=== PATIENT | female | born 1970 | race African-American/Black ===

== ENCOUNTER 2016-04-17 20:34 | Emergency (ER) | payer OTHER, MEDICAID ==
[~2016-04-17] VITALS: Ht 175.3 cm; Wt 89.0 kg
[~2016-04-17 20:34] MED LIST: IBUP600T26 PO
[2016-04-17 20:35] VITALS: BP 183/91; PULSE 80; RESP 18; TEMP 97.9; O2SAT 100
[2016-04-17] MEDS ORDERED: SODIUM CHLOR 0.9% 1000 ML INJ 1,000 ML IV ONE (22:22)
[2016-04-17] MEDS ORDERED: ONDANSETRON HCL 4 MG/2 ML VIAL IVP ONE (22:30)
--- NOTE | 2016-04-17 22:52 | RADRPT ---
EXAM DATE/TIME: 04/17/2016 22:31 [facility] COMPARISON: No previous studies available for comparison. INDICATIONS : Dizziness. RADIATION DOSE: 56.35 CTDIvol (mGy) MEDICAL HISTORY : None SURGICAL HISTORY : Cholecystectomy. Tubal ligation. ENCOUNTER: Initial ACUITY: 1 day PAIN SCALE: 0/10 LOCATION: cranial TECHNIQUE: Multiple contiguous axial images were obtained of the head. Using automated exposure control and adj ustment of the mA and/or kV according to patient size, radiation dose was kept as low as reasonably a chievable to obtain optimal diagnostic quality images. FINDINGS: CEREBRUM: The ventricles are normal for age. No evidence of midline shift, mass lesion, hemorrhage or acute in farction. No extra-axial fluid collections are seen. POSTERIOR FOSSA: The cerebellum and brainstem are intact. The 4th ventricle is midline. The cerebellopontine angle i s unremarkable. EXTRACRANIAL: The visualized portion of the orbits is intact. SKULL: The calvaria is intact. No evidence of skull fracture. CONCLUSION: Negative noncontrast head CT. Alexander Terry MD on April 17, 2016 at 22:50 Board Certified Radiologist. This report was verified electronically.
--- NOTE | 2016-04-17 22:52 | RADRPT ---
EXAM DATE/TIME: 04/17/2016 22:48 [facility] COMPARISON: No previous studies available for comparison. INDICATIONS : Cough, shortness of breath, and chest pain. MEDICAL HISTORY : None. SURGICAL HISTORY : None. ENCOUNTER: Initial ACUITY: 1 day PAIN SCORE: 4/10 LOCATION: chest FINDINGS: A single view of the chest demonstrates the lungs to be symmetrically aerated without evidence of mas s, infiltrate or effusion. The cardiomediastinal contours are unremarkable. Osseous structures are intact. CONCLUSION: No evidence of acute cardiopulmonary disease. Alexander Terry MD on April 17, 2016 at 22:51 Board Certified Radiologist. This report was verified electronically.
[2016-04-17] MEDS: SODIUM CHLORIDE 0.9% FLUSH 5 ML FLUSH IVF PRN (23:07)
[2016-04-17 23:09] LABS: BASOPHIL # 0.1 TH/MM3 (0-0.2); BASOPHIL % 1.1 % (0.0-2.0); EOSINOPHIL # 0.1 TH/MM3 (0-0.4); EOSINOPHIL % 1.2 % (0.0-4.0); HEMATOCRIT 31.9 % (35.0-46.0); HEMO FLAGS DIFF FINAL; LYMPH % 37.3 % (9.0-44.0); LYMPHOCYTE # 4.1 TH/MM3 (1.0-4.8); MEAN CELL VOLUME 81.3 FL (80.0-100.0); MEAN CORPUSCULAR HGB CONC 31.9 % (32.0-36.0); MONO % 5.8 % (0.0-8.0); NEUT % 54.6 % (16.0-70.0); PLATELET COUNT 458 TH/MM3 (150-450); RED BLOOD COUNT 3.92 MIL/MM3 (4.00-5.30); RED CELL DISTRIBUTION WIDTH 15.8 % (11.6-17.2); WHITE BLOOD COUNT 11.1 TH/MM3 (4.0-11.0)
[2016-04-17 23:19] LABS: APTT (PATIENT) 26.2 SEC (24.3-30.1); PROTHROMBIN TIME - PATIENT 11.3 SEC (9.8-11.6)
[2016-04-17 23:37] LABS: ALT (GPT) 16 U/L (10-53); ANION GAP 7 MEQ/L (5-15); AST (GOT) 6 U/L (15-37); BLOOD UREA NITROGEN 9 MG/DL (7-18); CHLORIDE 107 MEQ/L (98-107); GLOMERULAR FILTRATION RATE 92 ML/MIN (>89); MAGNESIUM 1.7 MG/DL (1.5-2.5); POTASSIUM 3.3 MEQ/L (3.5-5.1); SODIUM (NA) 140 MEQ/L (136-145)
[2016-04-17 23:40] LABS: ALKALINE PHOSPHATASE 59 U/L (45-117); TOTAL BILIRUBIN ADULT 0.4 MG/DL (0.2-1.0)
[2016-04-17 23:42] LABS: CREATINE KINASE 77 U/L (26-192)
[2016-04-18] VITALS: BP 177/84; PULSE 84; RESP 18; O2SAT 100
[2016-04-18] MEDS ORDERED: SODIUM CHLOR 0.9% 1000 ML INJ 1,000 ML IV ONE (01:00)
[2016-04-18] MEDS: SODIUM CHLORIDE 0.9% FLUSH 5 ML FLUSH IVF PRN (01:24)
[2016-04-18 02:50] VITALS: RESP 18; O2SAT 100
[2016-04-18 02:55] VITALS: BP_SYST 166; BP_SYST 172; BP_SYST 178; BP_DIAS 79; BP_DIAS 84; BP_DIAS 88; RESP 18
[2016-04-18 03:23] LABS: BLOOD, URINE MOD (NEG); COMMENT (UR) CULT NOT INDICATED; CULTURE IF INDICATED CULT NOT INDICATED; GLUCOSE,URINE NEG (NEG); KETONE, URINE NEG (NEG); MUCUS URINE FEW /lpf (OCC); NITRITE,URINE NEG (NEG); PH, URINE 5.5 (5.0-8.5); SQUAMOUS EPITHELIAL CELL URINE 1 /hpf (0-5); URINE COLOR YELLOW (YELLW/STRAW)
--- NOTE | 2016-04-18 03:38 | PD ---
HPI Chief Complaint: Syncope/Near-Syncope Time Seen by Provider: 22:22 Travel History International Travel<30 days: No Contact w/Intl Traveler<30days: No Traveled to known affect area: No History of Present Illness HPI 45 year-old female presents to the emergency department by private transportation for complaint of feeling shaky and near syncopal. Patient states that she felt well all day awakened on Wednesday seeming to fill while in around 7 AM while taking a shower started a week and felt as if her legs were and give way on her. Patient did not faint did not hit her head did not have loss of consciousness. Patient denies any chest pain shortness of breath palpitations. Patient denies any unilateral upper extremity or lower extremity focal numbness tingling or weakness. No visual disturbance no loss of vision no double vision no light sensitivity. No headache. No difficulty with speech no confusion. No abdominal pain. Patient states she called EMS and was evaluated. Patient continued to feel poorly so today's 5 decided to come to the emergency room for evaluation. Patient states standing upright and attempting to ambulate worsen symptoms resting provides no relief. Patient denies previous history of similar symptoms. Patient denies personal history of CAD arrhythmia hypertension dyslipidemia diabetes clotting disorder or family history of the above. Patient also denies any recent long distance travel protracted bedrest her surgical procedure. No lower extremity pain or swelling. [facility] Past Medical History Narrative Medical Denies past medical history; cholecystectomy; occasional alcohol use; nursing notes reviewed Medical History: Denies Significant Hx ?: Not LMP: CURRENT Tubal Ligation: Yes Past Surgical History Cholecystectomy: Yes (2006) Social History Alcohol Use: Yes ([facility]) Tobacco Use: No Substance Use: No Allergies-Medications (Allergen,Severity, Reaction): Coded Allergies: No Known Allergies (Unverified , 04/17/16) Reported Meds & Prescriptions Reported Meds & Active Scripts Active Zofran Odt (Ondansetron Odt) 4 Mg Tab 4 Mg SL Q6HR PRN Meclizine (Meclizine HCl) 25 Mg Tab 25 Mg PO Q6HR PRN Review of Systems Except as stated in HPI: all other systems reviewed are Neg General / Constitutional: No: Fever, Chills Eyes: No: Diploplia, Blurred Vision, Photophobia HENT: Positive: Vertigo, Lightheadedness, No: Headaches, Congestion, Neck Stiffness Cardiovascular: No: Chest Pain or Discomfort, Palpitations, Diaphoresis, Syncope Respiratory: No: Cough, Shortness of Breath Gastrointestinal: Positive: Nausea, No: Vomiting, Diarrhea, Abdominal Pain Genitourinary: No: Urgency, Frequency, Dysuria Musculoskeletal: No: Myalgias, Arthralgias Skin: No Rash Neurologic: Positive: Weakness, Dizziness, No: Syncope, Focal Abnormalities, Coordination Problem, Headache, Change in Mentation, Slurred Speech, Paresthesia , Incontinence, Sensory Disturbance Psychiatric: Positive: Anxiety Endocrine: No: Heat Intolerance, Cold Intolerance Hematologic/Lymphatic: No: Easy Bruising Physical Exam Narrative GENERAL: Well-developed well-nourished female in no acute distress no respiratory distress SKIN: Warm and dry. HEAD: Atraumatic. Normocephalic. EYES: Pupils equal and round. No scleral icterus. No injection or drainage. ENT: No nasal bleeding or discharge. Mucous membranes pink and moist. NECK: Trachea midline. No JVD. CARDIOVASCULAR: Regular rate and rhythm. RESPIRATORY: No accessory muscle use. Clear to auscultation. Breath sounds equal bilaterally. GASTROINTESTINAL: Abdomen soft, non-tender, nondistended. Hepatic and splenic margins not palpable. MUSCULOSKELETAL: Extremities without clubbing, cyanosis, or edema. No obvious deformities. NEUROLOGICAL: Awake and alert. No obvious cranial nerve deficits. Motor grossly within normal limits. Five out of 5 muscle strength in the arms and legs. No limb ataxia. No pronator drift. DTRs 2+ and symmetric. Sensory exam intact. Normal speech. PSYCHIATRIC: Appropriate mood and affect; insight and judgment normal. Data Data Last Documented VS Vital Signs Date Time Temp Pulse Resp B/P Pulse Ox O2 Delivery O2 Flow Rate FiO2 04/18/16 02:55 77 18 178/88 82 18 172/84 89 18 166/79 04/18/16 02:50 100 Room Air 04/17/16 20:35 97.9 Orders Electrocardiogram (04/17/16 20:49) Bedside Glucose KRISTA.AC&HS (04/17/16 20:49) Ed Urine Pregnancytest Poc (04/17/16 22:22) Complete Blood Count With Diff (04/17/16 22:22) Comprehensive Metabolic Panel (04/17/16 22:22) Magnesium (Mg) (04/17/16 22:22) Ckmb (Isoenzyme) Profile (04/17/16 22:22) Troponin I (04/17/16 22:22) Act Partial Throm Time (Ptt) (04/17/16 22:22) Prothrombin Time / Inr (Pt) (04/17/16 22:22) Urinalysis - C+S If Indicated (04/17/16 22:22) Chest, Single Ap (04/17/16 22:22) Ct Brain W/O Iv Contrast(Rout) (04/17/16 22:22) Ecg Monitoring (04/17/16 22:22) Iv Access Insert/Monitor (04/17/16 22:22) Oximetry (04/17/16 22:22) Ondansetron Inj (Zofran Inj) (04/17/16 22:30) Sodium Chloride 0.9% Flush (Ns Flush) (04/17/16 22:30) Sodium Chlor 0.9% 1000 Ml Inj (Ns 1000 M (04/17/16 22:22) Orthostatic Vital Signs (04/17/16 22:22) Sodium Chlor 0.9% 1000 Ml Inj (Ns 1000 M (04/18/16 01:00) Aspirin Chew (Aspirin Chew) (04/18/16 03:45) Clonidine (Catapres) (04/18/16 03:45) Potassium Chloride (Kcl) (04/18/16 03:45) Meclizine (Antivert) (04/18/16 04:30) Labs Laboratory Tests Test 04/17/16 04/18/16 22:45 02:15 White Blood Count 11.1 TH/MM3 Red Blood Count 3.92 MIL/MM3 Hemoglobin 10.2 GM/DL Hematocrit 31.9 % Mean Corpuscular Volume 81.3 FL Mean Corpuscular Hemoglobin 26.0 PG Mean Corpuscular Hemoglobin 31.9 % Concent Red Cell Distribution Width 15.8 % Platelet Count 458 TH/MM3 Mean Platelet Volume 7.7 FL Neutrophils (%) (Auto) 54.6 % Lymphocytes (%) (Auto) 37.3 % Monocytes (%) (Auto) 5.8 % Eosinophils (%) (Auto) 1.2 % Basophils (%) (Auto) 1.1 % Neutrophils # (Auto) 6.0 TH/MM3 Lymphocytes # (Auto) 4.1 TH/MM3 Monocytes # (Auto) 0.6 TH/MM3 Eosinophils # (Auto) 0.1 TH/MM3 Basophils # (Auto) 0.1 TH/MM3 CBC Comment DIFF FINAL Differential Comment Prothrombin Time 11.3 SEC Prothromb Time International 1.0 RATIO Ratio Activated Partial 26.2 SEC Thromboplast Time Sodium Level 140 MEQ/L Potassium Level 3.3 MEQ/L Chloride Level 107 MEQ/L Carbon Dioxide Level 26.0 MEQ/L Anion Gap 7 MEQ/L Blood Urea Nitrogen 9 MG/DL Creatinine 0.81 MG/DL Estimat Glomerular Filtration 92 ML/MIN Rate Random Glucose 93 MG/DL Calcium Level 8.3 MG/DL Magnesium Level 1.7 MG/DL Total Bilirubin 0.4 MG/DL Aspartate Amino Transf 6 U/L (AST/SGOT) Alanine Aminotransferase 16 U/L (ALT/SGPT) Alkaline Phosphatase 59 U/L Total Creatine Kinase 77 U/L Troponin I LESS THAN 0.02 NG/ML Total Protein 7.2 GM/DL Albumin 3.2 GM/DL Urine Color YELLOW Urine Turbidity CLEAR Urine pH 5.5 Urine Specific [place] 1.014 Urine Protein TRACE mg/dL Urine Glucose (UA) NEG mg/dL Urine Ketones NEG mg/dL Urine Occult Blood MOD Urine Nitrite NEG Urine Bilirubin NEG Urine Urobilinogen LESS THAN 2.0 MG/DL Urine Leukocyte Esterase NEG Urine RBC /hpf Urine WBC 3 /hpf Urine Squamous Epithelial 1 /hpf Cells Urine Mucus FEW /lpf Microscopic Urinalysis Comment CULT NOT INDICATED MDM Medical Decision Making Medical Screen Exam Complete: Yes Emergency Medical Condition: Yes Medical Record Reviewed: Yes Interpretation(s) EKG: Normal sinus rhythm rate [address] elevation or injury pattern change noted Last Impressions Head CT 04/17/162221 Signed Impressions: Service Date/Time: Sunday, April 17, 2016 22:31 - CONCLUSION: Negative noncontrast head CT. Alexander Terry MD Chest X-Ray 04/17/162221 Signed Impressions: Service Date/Time: Sunday, April 17, 2016 22:48 - CONCLUSION: No evidence of acute cardiopulmonary disease. Alexander Terry MD CBC & BMP Diagram 04/17/16 22:45 Vital Signs Date Time Temp Pulse Resp B/P Pulse Ox O2 Delivery O2 Flow Rate FiO2 04/18/16 02:55 77 18 178/88 82 18 172/84 89 18 166/79 04/18/16 02:50 18 100 Room Air 04/18/16 00:00 84 18 177/84 100 04/17/16 20:35 97.9 80 18 183/91 100 Differential Diagnosis Vertigo, labyrinthitis, viral syndrome, dehydration, TIA, uncontrolled hypertension, hypotension, UTI, sepsis, PE, ACS Narrative Course Patient placed on clinical research monitor IV access obtained specimens collected and sent for resulting EKG performed without acute ST elevation or injury pattern change noted Patient waiting on lab results resting quietly No nausea or vomiting and tolerating IV fluid bolus while requesting additional IV fluid bolus Repeat vital signs within normal range taking oral hydration well feels clinically improved Stable for outpatient management and follow-up with primary care provider Diagnosis Primary Impression: Dizziness and giddiness Referrals: Primary Care Physician 2 days Patient Instructions: General Instructions Departure Forms: Tests/Procedures, Work Release Special Instructions: no work x 2 days Additional Instructions: Increase fluid hydration Take medications as prescribed Follow-up with your primary care provider Return to the emergency department for any concerns or change in condition No work for 2 days; no driving for 2 days Med/Other Pt SpecificInfo: Prescription(s) given Scripts Ondansetron Odt (Zofran Odt)4 Mg Tab4 Mg SL Q6HR PRN (Nausea/Vomiting) #10 TAB Ref 0 Prov:Maira Foy MD 04/18/16 Meclizine 25 Mg Tab25 Mg PO Q6HR PRN (DIZZINESS) #12 TAB Ref 0 Prov:Maira Foy MD 04/18/16 Disposition: 01 DISCHARGE HOME Condition: Stable Maira Foy MD Apr 18, 2016 03:38
[2016-04-18] MEDS ORDERED: ASPIRIN 81 MG CHEW TAB CHEW ONE (03:45)
[2016-04-18] MEDS ORDERED: POTASSIUM CHLORIDE 20 MEQ CONTROLLED RELEASE TAB PO ONE (03:45)
[2016-04-18] MEDS ORDERED: cloNIDine HCL 0.1 MG TAB PO ONE (03:45)
[2016-04-18] MEDS ORDERED: MECL-62 PO (04:26)
[2016-04-18] MEDS ORDERED: ZOFR4TAB3 SL (04:26)
[2016-04-18] MEDS ORDERED: MECLIZINE HCL 25 MG TAB PO ONE (04:30)
--- NOTE | 2016-04-18 07:36 | EKG ---
Date Performed: 04/17/2016 Time Performed: 20:57:43 PTAGE: 45 years EKG: Sinus rhythm NORMAL ECG NO PREVIOUS TRACING DOCTOR: Rehan Mcdonough Interpretating Date/Time 04/18/2016 07:35:43
== END 2016-04-18 05:47 | disposition home or self-care (01) ==
LOC: NEPC 20:34
DX: R42 Dizziness and giddiness (principal); R55 Syncope and collapse
CPT/HCPCS: 70450; 71010; 80053; 81001; 82550; 83735; 84484; 84703; 85025; 85610; 85730; 93005; 96361; 96374; 99284; J2405; J7030

== ENCOUNTER 2016-05-17 02:42 | Emergency (ER) | payer MEDICAID, MEDICARE, OTHER ==
[~2016-05-17] VITALS: Ht 175.3 cm; Wt 88.0 kg
[~2016-05-17 02:42] MED LIST changes: -IBUP600T26 PO; +MECL-62 PO; +ZOFR4TAB3 SL
[2016-05-17 03:16] VITALS: BP 134/89; PULSE 89; RESP 14; TEMP 98.6; O2SAT 98
[2016-05-17] MEDS ORDERED: KETOROLAC TROMETHAMINE 60 MG/2 ML (IM) VIAL IM ONE (03:45)
[2016-05-17] MEDS ORDERED: ORPHENADRINE INJ 60 MG/2 ML AMP IM ONE (03:45)
--- NOTE | 2016-05-17 03:46 | PD ---
HPI Chief Complaint: Pain: Acute or Chronic Time Seen by Provider: 03:43 Travel History International Travel<30 days: No Contact w/Intl Traveler<30days: No Traveled to known affect area: No History of Present Illness HPI Patient comes in for evaluation of upper thoracic back pain ongoing for over 2 days. Patient states pain has been constant. Patient states she took a Percocet that her friend gave her seemed to help ease the pain some. Patient denies any trauma, IV drug use, fevers, numbness or tingling anywhere, or loss change in bowel or bladder. Denies any chest pain or shortness of breath with this. Pain is worse with palpation, certain movement, and deep inspiration. Patient describes pain as shooting like pain without radiation. Patient states she been taking what she believes be a muscle relaxer which she identifies as tramadol 30 mg that just makes her sleepy last dose approximately 8 hours ago. PFSH Past Medical History Musculoskeletal: Yes (low back pain) Tubal Ligation: Yes Past Surgical History Cholecystectomy: Yes (2005) Social History Alcohol Use: Yes ([facility]) Tobacco Use: No Substance Use: No Allergies-Medications (Allergen,Severity, Reaction): Coded Allergies: No Known Allergies (Unverified , 05/17/16) Reported Meds & Prescriptions Reported Meds & Active Scripts Active Diclofenac Sodium DR (Diclofenac Sodium) 75 Mg Tabdr 75 Mg PO Q12HR PRN Robaxin (Methocarbamol) 500 Mg Tab 500 Mg PO Q8HR PRN Zofran Odt (Ondansetron Odt) 4 Mg Tab 4 Mg SL Q6HR PRN Meclizine (Meclizine HCl) 25 Mg Tab 25 Mg PO Q6HR PRN Review of Systems Except as stated in HPI: all other systems reviewed are Neg Physical Exam Narrative GENERAL: Well-developed, well nourished, in no acute distress, and non-ill appearing. SKIN: Warm and dry. HEAD: Atraumatic. Normocephalic. EYES: Pupils equal and round. EOMI. No scleral icterus. No injection or drainage. ENT: No nasal bleeding or discharge. Mucous membranes pink and moist. NECK: Trachea midline. Supple. No nuclear rigidity. CARDIOVASCULAR: Regular rate and rhythm. No murmur appreciated. Radial pulses 2+, intact, and equal bilaterally. Capillary refill less than 2 seconds. RESPIRATORY: No accessory muscle use. No respiratory distress. Clear to auscultation. Breath sounds equal bilaterally. MUSCULOSKELETAL: No obvious deformities. No clubbing. No cyanosis. No edema. Full range of motion. No tenderness crepitus or midline thoracic spine. Patient reports tenderness to the left thoracic over the scapula. Shoulder:FROM equal BL with passive flexion, extension, Abduction, Adduction, internal/ external rotation, and pronation/supination. Sensation equal BL deltoid muscles. Pulses equal BL distal to injury. Capillary refill less than 2 seconds distal to injury and equal BL. FROM distal to injury and equal BL. Strength distal to injury equal BL. NV intact distal to injury equal BL. Flexion and extension of thumb equal BL. Equal strength and movement with abduction/adductions of BL fingers. [employer] In[employer] strength equal BL. NEUROLOGICAL: Awake and alert. No obvious cranial nerve deficits. Motor grossly within normal limits. Normal speech. PSYCHIATRIC: Appropriate mood and affect; insight and judgment normal. Data Data Last Documented VS Vital Signs Date Time Temp Pulse Resp B/P Pulse Ox O2 Delivery O2 Flow Rate FiO2 05/17/16 03:16 98.6 89 14 134/89 98 Orders Ketorolac Inj (Toradol Inj) (05/17/16 03:45) Orphenadrine Inj (Norflex Inj) (05/17/16 03:45) Oxycodone-Acetamin 5-325 Mg (Percocet (05/17/16 04:45) MDM Medical Decision Making Medical Screen Exam Complete: Yes Emergency Medical Condition: Yes Differential Diagnosis Fracture, strain, contusion, spasm, other Narrative Course The patient presented complaining of back pain. There was no history of recent fall or trauma. There was no evidence to support genitourinary etiology. There is also no evidence to suggest vascular pathology such as AAA dissection. No fevers or other evidence to suspect infectious processes, abscess, osteomyelitis etc. The patients neurological exam is normal with normal motor and sensory. There is no saddle paresthesias reported and no bowel or bladder incontinence or retention. There was also no clinical evidence by history, exam or risk factors to suggest atypical presentation of cardiac disease such as ACS , AMI or atypical angina. I suspect the pain is mechanical in nature. Clinical suspicion, plan of care and management was discussed with the patient. The patient was instructed to follow up with their health care provider. The patient was also instructed to return if the pain worsened, changed, or developed weakness or bowel or bladder trouble. The patient agreed with plan. Patient in no obvious distress upon re-evaluation. Patient was able to contact someone at her house and found that the muscle relaxer she is prescribed Zanaflex 4 mg. Patient was asked if they wanted to speak to my attending, which the patient did not wish to do at this time. Any questions/concerns in reference to patient diagnosis/condition discussed and clarified prior to patient's discharge. Reinforced sheer importance of close follow up with patient 's primary physician or primary care clinic. Instructed patient to return to ED immediately, if symptoms return/worsen. Pt showed understanding of above instructions. Further instructions and recommendations were detailed in discharge paperwork. Pt ambulated without difficulty out of ED at discharge. Diagnosis Primary Impression: Back pain Qualified Code: M54.6 - Left-sided thoracic back pain, unspecified chronicity Patient Instructions: General Instructions, Muscle Spasm (ED), Thoracic Back Strain (ED) Additional Instructions: Follow-up with your primary care physician in 2-3 days for reevaluation. Take all medication as prescribed. Stop taking the muscle relaxant you have at home and take the medication prescribed today instead. Return to the emergency department if symptoms get worse. Med/Other Pt SpecificInfo: Prescription(s) given Scripts Diclofenac Sodium DR 75 Mg Tabdr75 Mg PO Q12HR PRN (PAIN SCALE 1 TO 10) #14 TAB Ref 0 Prov:Aleks Sutherland MD 05/17/16 Methocarbamol (Robaxin)500 Mg Ifx150 Mg PO Q8HR PRN (MUSCLE PAIN) #15 TAB Ref 0 Prov:Aleks Sutherland MD 05/17/16 Disposition: 01 DISCHARGE HOME Condition: Stable Gume Almeida May 17, 2016 03:46
[2016-05-17] MEDS ORDERED: DICL75TA PO (04:38)
[2016-05-17] MEDS ORDERED: ROBA500T PO (04:38)
[2016-05-17] MEDS ORDERED: oxyCODONE/ACETAMINOPHEN 5 MG/325 MG TAB PO ONE (04:45)
== END 2016-05-17 04:52 | disposition home or self-care (01) ==
LOC: NEPB 02:42
DX: M54.6 Pain in thoracic spine (principal); Z87.39 Personal history of other diseases of the musculoskeletal system and connective tissue
CPT/HCPCS: 96372; 99283; J1885; J2360

== ENCOUNTER 2017-06-28 08:08 | Emergency (ER) | payer OTHER ==
[~2017-06-28] VITALS: Ht 175.3 cm; Wt 75.0 kg
[~2017-06-28 08:08] MED LIST changes: +DICL75TA PO; +ROBA500T PO
[2017-06-28 08:17] VITALS: BP 117/91; PULSE 70; RESP 16; TEMP 98.4; O2SAT 100
--- NOTE | 2017-06-28 08:37 | PD ---
HPI Chief Complaint: Injury Time Seen by Provider: 08:27 Travel History International Travel<30 days: No Contact w/Intl Traveler<30days: No Traveled to known affect area: No History of Present Illness HPI 46-year-old female presents to emergency department with complaint of left ankle and foot pain and right knee pain after slipping on a wet surface yesterday and falling. She says she did not fall completely down. She caught herself by falling to her right knee. Denies hitting her head or loss of consciousness. Denies chest pain, shortness of breath, abdominal pain, vomiting , syncope. Denies paresthesias, loss of sensation to the affected extremities. Has been ambulatory in the affected extremities. Rates pain 8/10. Worse with movement ambulation. Has tried taking BC powder for symptom management. Better at rest. No known allergies. Primary care provider is Dr. Enrike Gomez. Denies significant past medical history. Has no other medical complaints. No other modifying factors or associated signs and symptoms. PFSH Past Medical History Musculoskeletal: Yes (low back pain) ?: Not LMP: 06/2017 Tubal Ligation: Yes Past Surgical History Cholecystectomy: Yes (2005) Social History Alcohol Use: Yes () Tobacco Use: No Substance Use: No Allergies-Medications (Allergen,Severity, Reaction): Coded Allergies: No Known Allergies (Unverified , 05/17/16) Reported Meds & Prescriptions Reported Meds & Active Scripts Active Ibuprofen 800 Mg Tab 800 Mg PO Q6HR PRN Review of Systems Except as stated in HPI: all other systems reviewed are Neg Physical Exam Narrative GENERAL: Well-nourished, well-developed black female patient, in no acute distress SKIN: Warm and dry. HEAD: Atraumatic. Normocephalic. EYES: Pupils equal and round. No scleral icterus. No injection or drainage. ENT: Mucosa pink and moist. Airway patent. NECK: Trachea midline. CARDIOVASCULAR: Regular rate. RESPIRATORY: No accessory muscle use. GASTROINTESTINAL: Flat MUSCULOSKELETAL: Right ankle with point tenderness to the lateral malleolar zone with palpation; minimal edema; without erythema, ecchymosis; no obvious deformity. Left foot with tenderness on palpation to the second and third metatarsal region; without erythema, edema, ecchymosis; without obvious deformity. Right knee with a small palpable lump to the anterior aspect; without erythema, edema, ecchymosis; full range of motion with 90 flexion; joint stable with negative drawer test. Bilateral lower extremity is supple and nontense with 2+ pedal pulse and sensory intact. No obvious deformities. No clubbing. No cyanosis. No edema. NEUROLOGICAL: Awake and alert. Oriented 3. No obvious cranial nerve deficits. Motor grossly within normal limits. Normal speech. PSYCHIATRIC: Appropriate mood and affect; insight and judgment normal. Data Data Last Documented VS Vital Signs Date Time Temp Pulse Resp B/P (MAP) Pulse Ox O2 Delivery O2 Flow Rate FiO2 06/28/17 08:17 98.4 70 16 117/91 (100) 100 Orders Orders Ankle, Complete ([id number]) (06/28/17 08:28) Foot, Complete ([id number]) (06/28/17 08:28) Crutches (06/28/17 08:28) Knee, Complete (4vws) (06/28/17 08:32) Ibuprofen (Motrin) (06/28/17 08:45) Splint Or Brace Apply/Monitor (06/28/17 09:31) Ed Discharge Order (06/28/17 09:31) MDM Medical Decision Making Medical Screen Exam Complete: Yes Emergency Medical Condition: Yes Medical Record Reviewed: Yes Differential Diagnosis Fracture, sprain, injury Narrative Course 46-year-old female with right knee, left ankle, left foot injury after mechanical slip and fall yesterday. Did not fall completely to the ground. Denies hitting her head or loss of consciousness. Ibuprofen, right knee, left ankle, left foot x-ray ordered. 0932: Right knee, left ankle, left foot x-rays conclude: Knee X-Ray 06/28/17831 Signed Impressions: Service Date/Time: Wednesday, June 28, 2017 08:43 - CONCLUSION: No acute disease. Venkata Hatch MD FACR Foot X-Ray 06/28/17827 Signed Impressions: Service Date/Time: Wednesday, June 28, 2017 08:37 - CONCLUSION: No acute disease. Alexander Morrissey MD Ankle X-Ray 06/28/17827 Signed Impressions: Service Date/Time: Wednesday, June 28, 2017 08:39 - CONCLUSION: No acute disease. Venkata Hatch MD FACR Discussed x-ray findings with the patient. Left ankle Reno bandage and ankle stirrup splint provided for support. Crutches provided for support. Instructed patient to follow-up if symptoms persist greater than 7-10 days. Ibuprofen prescribed for home. Instructed patient to follow up with primary care provider. Patient verbalizes understanding and agreement with treatment plan. Patient is medically cleared and stable for discharge. Discussed reasons to return to the emergency department. Patient agrees with treatment plan. The patients vital signs are stable and the patient is stable for outpatient follow-up and treatment. Patient discharged home, stable and in no acute distress. Diagnosis Primary Impression: Contusion of right knee Qualified Codes: S80.01XA - Contusion of right knee, initial encounter Additional Impressions: Left ankle injury Qualified Codes: S99.912A - Unspecified injury of left ankle, initial encounter Injury of left foot Qualified Codes: S99.922A - Unspecified injury of left foot, initial encounter Referrals: Orthopedist Primary Care Physician Patient Instructions: Ankle Sprain (ED), Contusion in Adults (ED), Fall Prevention (ED), Foot Sprain (ED), General Instructions Departure Forms: Tests/Procedures, Work Release Special Instructions: Please excuse for work until cleared by primary care provider or orthopedic to return back to work for full duty Additional Instructions: Tylenol or ibuprofen as directed and as needed for pain and inflammation Rest, ice, compress, and elevate extremity to decrease pain and inflammation Ankle Brace for support Ren[place] bandage for compression and support Knee brace as needed for support Crutches as needed for support Avoid aggravating activity; increase activity as tolerated Follow-up with primary care provider Follow-up with orthopedics as needed Return to the emergency department immediately with worsening of symptoms Med/Other Pt SpecificInfo: Prescription(s) given Scripts Ibuprofen (Ibuprofen) 800 Mg Tab 800 MG PO Q6HR Y for PAIN, #30 TAB 0 Refills Prov: Gabriela Galan 06/28/17 Disposition: 01 DISCHARGE HOME Condition: Stable Gabriela Galan June 28, 2017 08:37
[2017-06-28] MEDS ORDERED: IBUPROFEN 800 MG TAB PO ONE (08:45)
--- NOTE | 2017-06-28 09:10 | RADRPT ---
EXAM DATE/TIME: 06/28/2017 08:39 [facility] COMPARISON: No previous studies available for comparison. INDICATIONS : Left ankle pain after fall last night. MEDICAL HISTORY : None. SURGICAL HISTORY : Cholecystectomy. Tubal ligation. ENCOUNTER: Initial ACUITY: 2 days PAIN SCORE: 5/10 LOCATION: Left foot. FINDINGS: Three view exam was performed of the left ankle. The bony structures are in normal alignment. No ev idence of fracture, dislocation, or soft tissue swelling. The ankle mortise is intact. No radiopaqu e foreign bodies are seen. Bony mineralization is normal. CONCLUSION: No acute disease. Venkata Hatch MD FACR on June 28, 2017 at 9:08 Board Certified Radiologist. This report was verified electronically.
--- NOTE | 2017-06-28 09:11 | RADRPT ---
EXAM DATE/TIME: 06/28/2017 08:43 [facility] COMPARISON: No previous studies available for comparison. INDICATIONS : Right knee pain after fall last night. MEDICAL HISTORY : SURGICAL HISTORY : Cholecystectomy. Tubal ligation. ENCOUNTER: Initial ACUITY: 2 days PAIN SCORE: 5/10 LOCATION: Right knee. FINDINGS: Four view examination of the right knee demonstrates no evidence of fracture or dislocation. Bony mi neralization is normal. The articular surfaces are intact. The suprapatellar soft tissues have a no rmal configuration. CONCLUSION: No acute disease. Venkata Hatch MD FACR on June 28, 2017 at 9:08 Board Certified Radiologist. This report was verified electronically.
--- NOTE | 2017-06-28 09:16 | RADRPT ---
EXAM DATE/TIME: 06/28/2017 08:37 [facility] COMPARISON: No previous studies available for comparison. INDICATIONS : Left foot pain after fall last night. MEDICAL HISTORY : None. SURGICAL HISTORY : Cholecystectomy. Tubal ligation. ENCOUNTER: Initial ACUITY: 2 days PAIN SCORE: 5/10 LOCATION: Left foot. FINDINGS: Three view examination of the left foot demonstrates no soft tissue swelling, dislocation, or fractur e. The tarsal bones appear intact. The interphalangeal and metatarsophalangeal joints are intact. The calcaneus is intact. Minimal calcaneal spurs are seen. Bony mineralization is normal. CONCLUSION: No acute disease. Alexander Morrissey MD on June 28, 2017 at 9:13 Board Certified Radiologist. This report was verified electronically.
[2017-06-28] MEDS ORDERED: IBUP1TAB7 PO (09:35)
== END 2017-06-28 09:50 | disposition home or self-care (01) ==
LOC: NEPD 08:08
DX: S80.01XA Contusion of right knee, initial encounter (principal); S99.912A Unspecified injury of left ankle, initial encounter; S99.922A Unspecified injury of left foot, initial encounter; W01.0XXA Fall on same level from slipping, tripping and stumbling without subsequent striking against object, initial encounter
CPT/HCPCS: 73564; 73610; 73630; 99283; E0113; L1906